=== PATIENT | female | born 1980 | race Caucasian/White ===

== ENCOUNTER 2016-03-17 13:40 | Emergency (ER) | payer OTHER ==
[~2016-03-17] VITALS: Ht 170.1 cm; Wt 90.7 kg
[~2016-03-17 13:40] MED LIST: ANASPAZ0.125 MG PO; ANTIVERT/2525 MG PO; ATIVAN1 MG PO; BACTRIM DS 8001 TA1 PO; CIPRO250 MG PO; IBU-6600 MG PO; MEDROL DOSEPAK4 MG PO; MOTRIN800 MG PO; Motrin,Rufen800 MG PO; PREDNISONE10 M1 PO; VALIUM5 MG PO; ZOFRAN ODT4 MG SL
[2016-03-17] MEDS ORDERED: IMITREX PO (13:45)
[2016-03-17 14:16] LABS: BASO % 0.5 % (0.0-1.0); EOS # 0.3 10*3/uL (0.0-0.4); EOS % 4.8 % (1.0-4.0); HEMATOCRIT 39.5 % (37.0-47.0); HEMOGLOBIN 13.8 g/dl (12.0-16.0); LYMPH # 1.6 10*3/uL (1.3-4.4); LYMPH % 28.1 % (27.0-41.0); MEAN CELL VOLUME 81.8 fl (81.0-99.0); MEAN CORPUSCULAR HGB 28.6 pg (27.0-31.0); MEAN CORPUSCULAR HGB CONC 34.9 g/dl (33.0-37.0); MONO # 0.3 10*3/uL (0.1-1.0); MONO % 5.7 % (3.0-9.0); NEUT # 3.5 10*3/uL (2.3-7.9); NEUT % 60.6 % (47.0-73.0); PLATELET COUNT AUTOMATED 174 10*3/uL (130-400); RED BLOOD COUNT 4.83 10*6/uL (4.10-5.10); RED CELL DISTRI WIDTH 12.7 % (0-14.5); WHITE BLOOD COUNT 5.8 10*3/uL (4.8-10.8)
[2016-03-17 14:40] LABS: ALBUMIN 4.1 gm/dl (3.1-4.5); ALKALINE PHOSPHATASE 60 U/L (45-117); BILIRUBIN, TOTAL 0.5 mg/dl (0.2-1.0); BUN 10 mg/dl (7-24); CARBON DIOXIDE 26 mmol/L (21-32); CHLORIDE 108 mmol/L (98-107); EST GLOM FILT AFRICAN AMERICAN > 60 ml/min; GLUCOSE 88 mg/dL (65-99); POTASSIUM 3.9 mmol/L (3.5-5.1); SGOT/AST 21 IU/L (3-35); SGPT/ALT 41 U/L (12-78); SODIUM 142 mmol/L (136-145)
[2016-03-17 14:48] LABS: TROPONIN I < 0.015 ng/ml (<0.5)
== END 2016-03-17 15:31 | disposition home or self-care (01) ==
LOC: ED 13:40
PROVIDERS: Nurse Practitioner Family
DX: G43.909 Migraine, unspecified, not intractable, without status migrainosus (principal); Z88.6 Allergy status to analgesic agent; Z88.8 Allergy status to other drugs, medicaments and biological substances; Z90.49 Acquired absence of other specified parts of digestive tract

== ENCOUNTER 2016-07-05 22:02 | Emergency (ER) | payer OTHER ==
[~2016-07-05 22:02] MED LIST changes: +IMITREX PO
[2016-07-05] MEDS ORDERED: CELEXA20 MG PO (22:13)
[2016-07-05 23:16] LABS: BASO # 0.1 10*3/uL (0.0-0.1); BASO % 0.5 % (0.0-1.0); EOS # 0.2 10*3/uL (0.0-0.4); HEMATOCRIT 41.3 % (37.0-47.0); HEMOGLOBIN 14.1 g/dl (12.0-16.0); IG # 0.1 10*3/uL (0.0-0.1); LYMPH # 2.2 10*3/uL (1.3-4.4); MEAN CELL VOLUME 81.8 fl (81.0-99.0); MEAN CORPUSCULAR HGB 27.9 pg (27.0-31.0); MEAN CORPUSCULAR HGB CONC 34.1 g/dl (33.0-37.0); MONO # 0.6 10*3/uL (0.1-1.0); MONO % 5.8 % (3.0-9.0); NEUT # 7.4 10*3/uL (2.3-7.9); NEUT % 70.2 % (47.0-73.0); PLATELET COUNT AUTOMATED 212 10*3/uL (130-400); RED BLOOD COUNT 5.05 10*6/uL (4.10-5.10); RED CELL DISTRI WIDTH 12.6 % (0-14.5); WHITE BLOOD COUNT 10.5 10*3/uL (4.8-10.8)
[2016-07-05 23:27] LABS: C-REACTIVE PROTEIN 1.03 MG/DL (0-0.3)
[2016-07-05 23:36] LABS: BILIRUBIN NEGATIVE (NEGATIVE); BLOOD NEGATIVE (NEGATIVE); CLARITY SL CLOUDY (CLEAR); COLOR YELLOW (YELLOW); GLUCOSE NEGATIVE (NEGATIVE); KETONE NEGATIVE (NEGATIVE); LEUKO ESTERASE NEGATIVE (NEGATIVE); NITRITE NEGATIVE (NEGATIVE); PH 5.5 (5.0-9.0); PROTEIN NEGATIVE (NEGATIVE); SPECIFIC GRAVITY 1.025 (1.005-1.030); UROBILINOGEN 0.2 E.U./dl (0.2-1.0)
[2016-07-05 23:45] LABS: RBC 0-2 rbc/hpf (0-2); URINE REFLEX COMMENT YES (NO)
[2016-07-06] MEDS ORDERED: MIRALAX POWDER255 G1 PO ×2 (00:54)
[2016-07-06] MEDS ORDERED: MACROBID100 M1 PO ×2 (00:54)
== END 2016-07-06 01:01 | disposition home or self-care (01) ==
LOC: ED 22:02
PROVIDERS: Emergency Medicine Emergency Medical Services
DX: N30.00 Acute cystitis without hematuria (principal); K59.00 Constipation, unspecified; K59.8 Other specified functional intestinal disorders; G43.109 Migraine with aura, not intractable, without status migrainosus; Z90.49 Acquired absence of other specified parts of digestive tract; Z79.899 Other long term (current) drug therapy; Z88.8 Allergy status to other drugs, medicaments and biological substances; Z88.5 Allergy status to narcotic agent; Z88.6 Allergy status to analgesic agent

== ENCOUNTER 2017-01-16 09:24 | Emergency (ER) | payer SELFPAY ==
[~2017-01-16] VITALS: Ht 170.1 cm; Wt 52.2 kg
[~2017-01-16 09:24] MED LIST changes: +CELEXA20 MG PO; +MACROBID100 M1 PO; +MIRALAX POWDER255 G1 PO
[2017-01-16 09:55] LABS: BASO % 0.5 % (0.0-1.0); EOS # 0.5 10*3/uL (0.0-0.4); EOS % 5.7 % (1.0-4.0); HEMOGLOBIN 13.3 g/dl (12.0-16.0); LYMPH # 1.8 10*3/uL (1.3-4.4); LYMPH % 22.4 % (27.0-41.0); MEAN PLATELET VOLUME 9.2 fl (9.6-12.3); MONO # 0.4 10*3/uL (0.1-1.0); MONO % 5.5 % (3.0-9.0); NEUT # 5.2 10*3/uL (2.3-7.9); NEUT % 65.4 % (47.0-73.0); PLATELET COUNT AUTOMATED 202 10*3/uL (130-400); RED BLOOD COUNT 4.75 10*6/uL (4.10-5.10); RED CELL DISTRI WIDTH 12.8 % (0-14.5); WHITE BLOOD COUNT 7.9 10*3/uL (4.8-10.8)
[2017-01-16 09:57] LABS: BILIRUBIN NEGATIVE (NEGATIVE); BLOOD NEGATIVE (NEGATIVE); CLARITY SL CLOUDY (CLEAR); COLOR YELLOW (YELLOW); GLUCOSE NEGATIVE (NEGATIVE); KETONE NEGATIVE (NEGATIVE); LEUKO ESTERASE 3+ (NEGATIVE); NITRITE NEGATIVE (NEGATIVE); UROBILINOGEN 0.2 E.U./dl (0.2-1.0)
[2017-01-16 10:10] LABS: ALKALINE PHOSPHATASE 68 U/L (45-117); BUN 8 mg/dl (7-24); CHLORIDE 107 mmol/L (98-107); CREATININE 0.76 mg/dL (0.55-1.02); POTASSIUM 3.7 mmol/L (3.5-5.1); SGOT/AST 22 IU/L (3-35); SGPT/ALT 47 U/L (12-78); SODIUM 141 mmol/L (136-145); TOTAL PROTEIN 7.1 gm/dL (6.4-8.2)
[2017-01-16 10:27] LABS: BACTERIA 3+; EPITHELIAL CELLS 16-20; WBC TNTC wbc/hpf (0-5)
[2017-01-16] MEDS ORDERED: PYRIDIUM200 M1 PO (10:54)
[2017-01-16] MEDS ORDERED: MACROBID100 M1 PO (10:54)
== END 2017-01-16 11:19 | disposition home or self-care (01) ==
LOC: ED 09:24
PROVIDERS: Emergency Medicine
DX: N39.0 Urinary tract infection, site not specified (principal); G43.109 Migraine with aura, not intractable, without status migrainosus; Z90.49 Acquired absence of other specified parts of digestive tract; Z98.890 Other specified postprocedural states; Z79.899 Other long term (current) drug therapy; Z88.6 Allergy status to analgesic agent; Z88.5 Allergy status to narcotic agent

== ENCOUNTER 2017-07-11 19:03 | Emergency (ER) | payer SELFPAY ==
[~2017-07-11] VITALS: Ht 170.1 cm; Wt 90.7 kg
[~2017-07-11 19:03] MED LIST changes: +PYRIDIUM200 M1 PO
[2017-07-11] MEDS ORDERED: PENICILLIN250 MG PO (19:17)
[2017-07-11] MEDS ORDERED: XYZAL5 M1 PO (19:17)
[2017-07-11 20:02] LABS: BASO % 0.3 % (0.0-1.0); EOS # 0.5 10*3/uL (0.0-0.4); EOS % 5.4 % (1.0-4.0); HEMATOCRIT 39.8 % (37.0-47.0); HEMOGLOBIN 13.1 g/dl (12.0-16.0); LYMPH # 2.1 10*3/uL (1.3-4.4); LYMPH % 23.7 % (27.0-41.0); MEAN CELL VOLUME 81.7 fl (81.0-99.0); MEAN CORPUSCULAR HGB 26.9 pg (27.0-31.0); MEAN CORPUSCULAR HGB CONC 32.9 g/dl (33.0-37.0); MEAN PLATELET VOLUME 9.1 fl (9.6-12.3); MONO # 0.5 10*3/uL (0.1-1.0); MONO % 5.4 % (3.0-9.0); NEUT # 5.6 10*3/uL (2.3-7.9); NEUT % 64.9 % (47.0-73.0); PLATELET COUNT AUTOMATED 193 10*3/uL (130-400); RED BLOOD COUNT 4.87 10*6/uL (4.10-5.10); RED CELL DISTRI WIDTH 12.9 % (0-14.5); WHITE BLOOD COUNT 8.7 10*3/uL (4.8-10.8)
[2017-07-11 20:15] LABS: BUN 11 mg/dl (7-24); CHLORIDE 108 mmol/L (98-107); CREATININE 0.95 mg/dL (0.55-1.02); POTASSIUM 3.5 mmol/L (3.5-5.1); SODIUM 142 mmol/L (136-145)
[2017-07-11 20:20] LABS: B-hCG (QUALITATIVE) NEGATIVE (NEGATIVE)
[2017-07-11 20:25] LABS: TROPONIN I < 0.015 ng/ml (<0.045)
[2017-07-11] MEDS ORDERED: PROAIR HFA8.5 GM INH ×2 (20:51→21:01)
[2017-07-11] MEDS ORDERED: ZITHROMAX250 MG PO ×2 (20:51→21:01)
== END 2017-07-11 20:56 | disposition home or self-care (01) ==
LOC: ED 19:03
PROVIDERS: Emergency Medicine Emergency Medical Services
DX: J98.01 Acute bronchospasm (principal); J40 Bronchitis, not specified as acute or chronic; G43.909 Migraine, unspecified, not intractable, without status migrainosus; Z90.89 Acquired absence of other organs; Z79.899 Other long term (current) drug therapy; Z88.5 Allergy status to narcotic agent; Z88.6 Allergy status to analgesic agent; Z88.8 Allergy status to other drugs, medicaments and biological substances